=== PATIENT | female | born 1965 | race Caucasian/White ===

== ENCOUNTER → 2018-04-17 08:43 | Outpatient (CLI) | payer BC, SELFPAY ==
[2018-04-17 11:24] LABS: ALT 28 U/L (12-78); AST 22 U/L (15-37); Albumin 3.9 g/dL (3.4-5.0); Alkaline Phosphatase 103 U/L (46-116); Anion Gap 5.8 mmol/L (3-11); BUN 19 mg/dL (7-18); Bilirubin, Total 0.5 mg/dL (0.2-1.0); CO2 29.2 mmol/L (21.0-32.0); CREATININE 0.93 mg/dL (0.55-1.02); Calcium 8.7 mg/dL (8.5-10.1); Chloride 107 mmol/L (98-107); Cholesterol 193 mg/dL (50-200); Glucose 93 mg/dL (70-100); HCT 43.2 % (36.0-46.0); HDL Cholesterol 60 mg/dL (40-60); HGB 14.1 g/dL (12.0-15.5); LDL CHOLESTEROL 134 mg/dL (<100); Mean Corp. HGB Concentration 32.6 g/dL (32.0-36.0); Mean Corpuscular Hemoglobin 30.1 pg (27.0-33.0); Mean Corpuscular Volume 92.3 fL (80-95); Mean Platelet Volume 11.4 fL (8.0-11.0); Platelet Count 255 x1000/uL (130-400); Potassium 3.9 mmol/L (3.5-5.1); RBC 4.68 m/cumm (4.00-5.20); RBC Distribution Width 13.6 % (11.7-14.6); Sodium 142 mmol/L (136-145); Total Protein 7.1 g/dL (6.4-8.2); Triglyceride 54 mg/dL (30-150)
[2018-04-17 11:29] LABS: Iron 103 ug/dL (50-175)
== END ==
PROVIDERS: PCP Family Medicine; Visit Provider Family Medicine
DX: Z00.00 Encounter for general adult medical examination without abnormal findings (principal); E61.1 Iron deficiency
CPT/HCPCS: 36415; 80053; 80061; 83721; 85027; 83540

== ENCOUNTER 2018-04-29 00:34 | Outpatient (CLI) | payer BC, SELFPAY ==
--- NOTE | 2018-04-29 16:14 | DI.MAMMO_ITS ---
SYMPTOMS/DIAGNOSIS: SCREENING, Z12.31 BILATERAL SCREENING MAMMOGRAM: Mammograms were interpreted according to the usual protocol including computer analysis with CAD system, tomosynthesis and C view imaging. Comparison is made with exams from 2009 through 2017. The breasts are composed of scattered fibroglandular densities, breast density category B. No suspicious masses or suspicious microcalcifications are seen. There has been no significant change. IMPRESSION: Category 1B, negative mammogram. Yearly screening mammography is recommended. [facility] ASSESSMENT OF FINDINGS: Negative. Category 1. Patient will receive a letter notifying them of these results. BI-RADS category B. There are scattered areas of fibroglandular density.
== END 2018-04-29 00:54 ==
PROVIDERS: PCP Family Medicine; Visit Provider Family Medicine
DX: Z12.31 Encounter for screening mammogram for malignant neoplasm of breast (principal)
CPT/HCPCS: 77063; 77067

== ENCOUNTER 2019-01-05 08:13 | Emergency (ER) | payer BC, SELFPAY ==
--- NOTE | 2019-01-05 08:16 | W.ED.GENAD ---
Discharge Plan Disposition Patient Disposition: HOME Condition: Stable Discharge Details Chief Complaint: RashLesion Clinical Impression: Contact dermatitis Primary Care Provider: Luli Pickering ED Provider: Marva Mcdonald Home Meds and New Rx's Prescriptions: New prednisone 20 mg tablet See Rx Instructions .ROUTE .COMPLEX Qty: 24 RF: 0 Continued red yeast rice 600 MG tablet 2 cap PO DAILY RF: 0 losartan-hydrochlorothiazide 1 EACH tablet 1 tab-cap PO DAILY Qty: 90 RF: 12 Discharge Instructions Instructions: Poison Kaela (ED), Dermatitis (ED) Additional Instructions: Your rash appears consistent with a contact dermatitis which may be the result of poison kaela. Take the steroids until finished. Take Benadryl as needed and directed for itching. You can try mvxe-rww-[id number] nonsedating antihistamines such as Claritin, Zyrtec or Gerri to help with itching during the day. Follow-up with your primary care doctor this week for reevaluation. Return immediately to the emergency department with any worsening or new concerning symptoms. Discharge Data Discharge Physician: Marva Mcdonald Medical Decision Making 53-year-old female who presents with pruritic rash to face, extremities and chest x2 days. 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 Facial rash appears consistent with a contact dermatitis such as poison kaela. It is possible the scattered papules on her extremities and chest are due to self inoculation from itching her facial rash with fluid from the vesicles. There is no evidence of acute cellulitis. Patient appears nontoxic and afebrile. Will give a prescription for longer taper of steroids over 12 days. She is instructed to use Benadryl as needed and directed for itching. Patient instructed to follow-up with the primary care doctor for reevaluation and return here if worse. HPI General Mode of arrival: ambulatory. Date/Time Provider Initiated Documentation: 01/05/19 08:14. Limitations to Documentation: no limitations. Information obtained by: patient. HPI Narrative: Patient is a 53-year-old female who presents with itchy rash noted to her extremities, chest, and more pronounced on her face for the past 2 days. Patient states she first noticed it to her right hand 2 days ago, and yesterday spread to other parts of her body including her left upper extremity, left lower extremity, left breast, and now is worsening on her face. She states the rash is itchy. She has applied topical hydrocortisone to her face. 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 She states she was using new fabric covering chairs 2 days ago as well but denies any known allergy to this. She also admits to using a new soap 2 days ago. She denies fever, sore throat, cough, shortness of breath, nausea or vomiting. Related Data Home Medications Medication Instructions Recorded Confirmed red yeast rice 2 cap PO DAILY 06/24/13 01/05/19 losartan-hydrochlorothiazide 1 tab-cap PO DAILY #90 tab-cap 18 01/05/19 prednisone See Rx Instructions .ROUTE 01/05/19 .COMPLEX #24 tab Previous Rx's Medication Instructions Recorded losartan-hydrochlorothiazide 1 tab-cap PO DAILY #90 tab-cap 01/11/18 prednisone See Rx Instructions .ROUTE 01/05/19 .COMPLEX #24 tab Allergies Allergy/AdvReac Type Severity Reaction Status Date / Time No Known Allergies Allergy Unverified 01/05/19 08:21 Review of Systems Review of Systems All systems reviewed & are unremarkable except as noted in HPI and below Constitutional Reports as per HPI, Denies chills and Denies fever(s) Eyes Denies blurry vision ENT Denies dizziness, Denies sore throat and Denies throat swelling Cardiovascular Denies chest pain and Denies dyspnea Respiratory Denies cough and Denies dyspnea Gastrointestinal Denies abdominal pain, Denies diarrhea and Denies vomiting Genitourinary Denies hematuria and Denies dysuria Musculoskeletal Denies back pain and Denies numbness Integumentary/Breasts Denies lesions and Reports rash Neurologic Denies dizziness, Denies focal weakness and Denies numbness Allergic/Immunologic Denies throat swelling [facility] Medical History Depression Hypertension Iron deficiency anemia Migraine Surgical History Appendectomy (~02/1977) Ligation of fallopian tube (~06/1998) Family History Mother Essential hypertension Depression Heart disease Hyperlipidemia Bipolar disorder Colon cancer Cervical cancer Uterine cancer Father Essential hypertension Emphysema lung Alcohol abuse Brother Lazy eye Brother ADHD Maternal Uncle Essential hypertension Asthma Heart murmur Maternal Aunt Essential hypertension Heart murmur Maternal Aunt Essential hypertension Arthritis Maternal Grandfather Mental disorder Paternal Grandfather Alcohol abuse Colon cancer Maternal Grandmother Arthritis Cataract Alcohol abuse Paternal Grandmother No problems noted. Social History Smoking/Tobacco Use Status: Never Drug use: Never Exam Const General: cooperative, healthy appearing and no acute distress HENMT Head: normal to inspection Ears: hearing grossly normal bilaterally, external ears normal and TM's normal bilaterally General nose exam: external nose normal Face and sinus: normal facial exam Mouth: oral mucosae normal Throat: posterior oropharynx normal Eyes General: appearance normal, both eyes and all related structures Neck Neck: normal visual inspection Resp Effort & Inspection: normal respiratory effort and able to speak in complete sentences Auscultation: clear to auscultation bilaterally Cardio Rate: regular rate Rhythm: regular rhythm Skin Other: Scattered erythematous papules and vesicles noted to bilateral upper and lower extremities. 2 papules noted to right hand, 1 to left upper extremity, 1 to left lower extremity. Groupings of papules and clear fluid-filled vesicles noted to bilateral cheeks. Area noted to left cheek more extensive and extending from below infraorbital region down to chin, area to right cheek localized to the right mandible. Both areas have surrounding erythema but no fluctuance, induration or evidence of cellulitis. There are also scattered papules noted behind ears and left breast. Neuro General: alert, awake and oriented x3 Motor: muscle tone normal throughout Extrem General: normal to inspection and full ROM Psych Appearance: grossly normal Affect: normal affect
[2019-01-05 08:17] VITALS: BP 162/79; PULSE 64; RESP 16; TEMP 36.7; O2SAT 99
== END 2019-01-05 08:47 | disposition home or self-care (01) ==
LOC: ER 08:42
PROVIDERS: Emergency Provider Physician Assistant; PCP Family Medicine
DX: L25.9 Unspecified contact dermatitis, unspecified cause (principal); I10 Essential (primary) hypertension
CPT/HCPCS: 99283

== ENCOUNTER 2019-05-05 17:46 | Outpatient (REF) | payer BC, SELFPAY ==
--- NOTE | 2019-05-05 15:45 | PAPFT_PTH ---
PATIENT: Elizabeth Diaz LOC: [facility] U#:[id number] AGE/SX: 54/F ROOM: RE05/05/[address]: Luli Pickering MD, DC : 1965 BED: DIS: 05/05/2019 SPEC #: [id number] RECD: 05/05/19 18:47 STATUS: LORA REChristina #: [id number] JAVIER: 05/05/19 15:[address]: Luli Pickering DEPT: [facility] Cytology RECD BY: Pam Turk Tissues: 1 - CX/ENDOCX FOR PAP SMEARS Procedures: PAP THIN PREP/UVM Screening HPV DNA PROBE Comments: [id number]
== END 2019-05-05 18:06 ==
LOC: LBN 17:46
PROVIDERS: PCP Family Medicine; Visit Provider Family Medicine
DX: Z12.4 Encounter for screening for malignant neoplasm of cervix (principal); Z11.51 Encounter for screening for human papillomavirus (HPV)
CPT/HCPCS: 88142; 87624

== ENCOUNTER 2019-05-12 09:13 | Outpatient (CLI) | payer BC, SELFPAY ==
[2019-05-12 13:29] LABS: ALT 35 U/L (14-59); AST 26 U/L (15-37); Albumin 4.1 g/dL (3.4-5.0); Alkaline Phosphatase 110 U/L (46-116); Anion Gap 8.9 mmol/L (3-11); BUN 16 mg/dL (7-18); Bilirubin, Total 0.5 mg/dL (0.2-1.0); CO2 29.1 mmol/L (21.0-32.0); CREATININE 0.93 mg/dL (0.55-1.02); Calcium 9.4 mg/dL (8.5-10.1); Calculated LDL 104 mg/dL; Chloride 107 mmol/L (98-107); Cholesterol 176 mg/dL (50-200); Glucose 94 mg/dL (70-100); HDL Cholesterol 57 mg/dL (40-60); Potassium 4.4 mmol/L (3.5-5.1); Sodium 145 mmol/L (136-145); Triglyceride 75 mg/dL (30-150)
== END 2019-05-12 09:33 ==
PROVIDERS: PCP Family Medicine; Visit Provider Family Medicine
DX: Z00.00 Encounter for general adult medical examination without abnormal findings (principal)
CPT/HCPCS: 36415; 80053; 80061

== ENCOUNTER 2020-01-30 08:34 | Outpatient (CLI) | payer BC, SELFPAY ==
[2020-02-02 12:23] LABS: COVID-19 RT-PCR Result NEGATIVE (Negative)
== END 2020-01-30 08:54 ==
PROVIDERS: PCP Family Medicine; Visit Provider Family Medicine
DX: Z11.59 Encounter for screening for other viral diseases (principal)
CPT/HCPCS: U0003

== ENCOUNTER 2020-03-08 07:46 | Outpatient (CLI) | payer BC, SELFPAY ==
[2020-03-13 01:36] LABS: SARS-CoV-2 RNA Undetected (Undetected); SARS-CoV-2 Specimen Source Nasopharynx
== END 2020-03-08 08:06 ==
PROVIDERS: PCP Family Medicine; Visit Provider Family Medicine
DX: Z11.59 Encounter for screening for other viral diseases (principal)
CPT/HCPCS: U0003

== ENCOUNTER 2020-07-26 00:53 | Outpatient (CLI) | payer BC, SELFPAY ==
--- NOTE | 2020-07-26 06:37 | DI.MAMMO_ITS ---
EXAM: MG MAMMO SCREENING CLINICAL HISTORY: screening,Z12.39. TECHNIQUE: Bilateral full field digital CC and MLO mammographic images were obtained with 3D tomosyn thesis and utilizing computer aided detection (CAD). COMPARISON: Prior mammograms dating back to 2011, the most recent being April 2018. FINDINGS: There are no CAD designations. There are no new dominant masses nor malignant appearing microcalcification groups. There is no new architectural distortion nor skin thickening-retraction. IMPRESSION: No radiographic evidence of malignancy. BI-RADS Category 1 - Negative Breast Density - Category B - Scattered areas of fibroglandular density Breast density Category C or D implies that the patient has dense breast tissue. Dense breast tissue can make it harder to find cancer on a mammogram. Dense breast tissue is also associated with an incr eased risk of breast cancer. This information about the result of the mammogram report was provided to the patient to raise their awareness. Use this report when you speak with the patient about their risks for breast cancer, which includes their family history. At that time, you may recommend additional screening tests (Ultrasoun d or MRI) as these tests may add significant information. A negative radiographic report should not delay biopsy if a dominant or clinically suspicious mass is present. Up to ten percent of cancers are not identified on mammography. A negative report may reinforce clinical impression. Adenosis and dense breasts may obscure an underlying neoplasm. False positive reports average 6 to 10%. Patient will receive a letter notifying them of these results.
== END 2020-07-26 01:13 ==
PROVIDERS: PCP Family Medicine; Visit Provider Family Medicine
DX: Z12.31 Encounter for screening mammogram for malignant neoplasm of breast (principal)
CPT/HCPCS: 77063; 77067

== ENCOUNTER 2020-07-29 05:05 | Outpatient (CLI) | payer BC, SELFPAY ==
[2020-07-29 08:05] LABS: HGB 14.8 g/dL (11.2-15.7); MCH 29.7 pg (27.0-33.0); MCHC 32.2 % (32.0-36.0); MCV 92.4 fL (80-95); MPV 10.7 fL (8.0-11.0); Platelet Count 320 10^3/uL (130-400); RBC 4.98 10^6/uL (3.93-5.22); RDW 12.8 % (11.7-14.6); RDW-SD 43.8 fL; WBC 4.67 10^3/uL (4.4-10.8)
[2020-07-29 08:34] LABS: Hemoglobin A1C 5.4 % (<5.7)
[2020-07-29 08:56] LABS: ALT 36 U/L (14-59); AST 22 U/L (15-37); Albumin 4.3 g/dL (3.4-5.0); Alkaline Phosphatase 110 U/L (46-116); BUN 21 mg/dL (7-18); Bilirubin, Total 0.6 mg/dL (0.2-1.0); CREATININE 1.07 mg/dL (0.55-1.02); Calcium 9.2 mg/dL (8.5-10.1); Calculated LDL 163 mg/dL (<100); Chloride 103 mmol/L (98-107); Cholesterol 242 mg/dL (<200); Estimated GFR 53.05 (mL/min/1.73m2); Glucose 98 mg/dL (74-106); HDL Cholesterol 67 mg/dL (40-60); Potassium 4.2 mmol/L (3.5-5.1); Sodium 142 mmol/L (136-145); Total Protein 7.6 g/dL (6.4-8.2); Triglyceride 61 mg/dL (<150)
== END 2020-07-29 05:25 ==
PROVIDERS: PCP Family Medicine; Visit Provider Family Medicine
DX: Z00.00 Encounter for general adult medical examination without abnormal findings (principal); E11.9 Type 2 diabetes mellitus without complications; I10 Essential (primary) hypertension
CPT/HCPCS: 36415; 80053; 80061; 85027; 83036

== ENCOUNTER 2020-10-18 10:12 | Day surgery (SDC) | payer BC, SELFPAY ==
--- NOTE | 2020-10-18 06:44 | W.COLOREPORT ---
Date of service: 10/18/20 Time of Service: 11:40 Colonoscopy Report Date of procedure: 10/18/20 Pre-op diagnosis general: Hx of colon polyps Post-op diagnosis procedure note: same (polyps) Procedure: Colonoscopy with polypectomy Surgeon: Vika Novoa Anesthesia proc note operative: other (General/ASA 2/Eleazar West CRNA and Julito Skelton CRNA) Estimated blood loss (mL): 3 Pathology: other ([place] polyos x2, sigmoid colon) Complications: None Disposition: no change Indications: The patient is here for Colonoscopy pre-op. Her last screening was in 2014 and was remarkable for tubular adenomatous polyps. She reports a family history of colon cancer in her biological mother whom diet in her 60s. She has not had any bowel habit changes. -Discussed colonoscopy bowel prep as well as the procedure. Discussed possible complications of the procedure to include bleeding, pain, perforation, missed small lesion/polyp, sore throat, aspiration and adverse reaction to the medications. Questions were answered to patient?s satisfaction. No guarantees were implied or given. Prep: Miralax/Dulcolax Procedure Start Time: 10:52 Procedure End Time: 11:32 Retraction Time: 26 minutes Findings: 2 polyps approximately 0.5 cm 1 polyp <.5 cm Procedure Description: After informed consent was obtained the patient was taken to the procedure room and placed in a left decubitous position. Monitors were applied and a time out was done. The patients name, date of , procedure, allergies to medications and metal in their body was reviewed. The patient was then sedated. Once sedated and comfortable a rectal exam was done. External exam was normal. Internal exam revealed a normal sphincter tone and no palpable masses. The scope was then introduced and retro-flexed. No internal hemorrhoids, polyps or masses were identified on retro-flexion. The scope was then advanced to the cecum without difficulty. The ileocecal vlave and appendiceal orifice were identified. The prep was good. The scope was then slowly retracted over 26 minutes back into the rectum. Polyps were removed with a hot snare in the ascending colon and with forceps in the ascending colon and sigmoid colon. There was no diverticulosis noted. The scope was removed and the patient was woken up and taken back to Same day surgery in stable condition. The patient tolerated the procedure well and there were no immediate complications. Follow up: The patient should follow up in 5 years unless they develop changes in bowel habits or other new gastrointestinal complaints.
--- NOTE | 2020-10-18 06:45 | W.PM.DSUDISC ---
Discharge Plan Disposition Patient Disposition: HOME Condition: Good Discharge Details Reason For Visit: colonoscopy Attending Provider: Vika Novoa Primary Care Provider: Luli Pickering Home Meds and New Rx's Prescriptions: Continued red yeast rice 600 MG tablet 2 cap PO DAILY RF: 0 amlodipine 10 mg tablet 10 mg PO DAILY Qty: 90 RF: 4 Discharge Instructions Instructions: Colorectal Polyps (DC) Additional Instructions: Findings: 3 polyps Follow up: 5 years Please call if you develop: fevers >101.5 Nausea or Vomiting Abdominal pain that is not transient DAY SURGERY UNIT POST ENDOSCOPY INSTRUCTIONS 1. Because there will be medication in your system for the next 24 hours, you may feel a little sleepy. Your coordination will be affected. Therefore: a. Do not drive or operate dangerous equipment for 24 hours. b. Do not drink alcohol beverages for 24 hours (not even beer). c. Plan to go home and rest for the day. 2. Generally there are no restrictions on your activity after a day or so has gone by, but you may feel a bit fatigued for a few days. 3 After you arrive home you may have a light meal and return to a normal diet as you can tolerate it without feeling sick to your stomach. 4. After surgery, you may feel pain or discomfort. This should be only transient, but if it persists please contact your doctor. 5. If there are any questions regarding the findings of your procedure, please feel free to contact your doctor. 6. If you are unable to contact your doctor with a problem, contact the hospital at [phone]. 7. Continue all your regular medications unless directed otherwise. I understand the above instructions and have no questions. Signature of Patient or Responsible Adult Escort Date/Time Name of Responsible Adult Escort Signature of Nurse Date/Time Activity:: Activity as Tolerated Diet:: As Tolerated Discharge Orders Discharge Orders: Discharge Order (Routine); Ordered 10/18/20 Ordered By: Vika Novoa
[2020-10-18 10:16] VITALS: BP 137/81; PULSE 70; RESP 18; TEMP 37; O2SAT 99
[2020-10-18] MEDS: Lactated Ringers 1,000 ML 80 ML IV (10:39)
--- NOTE | 2020-10-18 11:10 | BOWEL_PTH ---
PATIENT: Elizabeth Diaz LOC: [facility] U#:[id number] AGE/SX: 55/F ROOM: RE10/18/[address]: Vika Novoa MD : 1965 BED: DIS: 10/18/2020 SPEC #: [id number] RECD: 10/18/20 12:37 STATUS: LORA REChristina #: [id number] JAVIER: 10/18/20 11:[address]: Vika Novoa DEPT: Surgical Specimen RECD BY: Pam Turk ENTERED: 10/18/20 12:38 SP TYPE: Bowel OTHR DR: Luli Pickering MD, DC Tissues: 1 - BIOPSY BOWEL 2 - BIOPSY BOWEL Procedures: GROSS AND MICRO LEVEL 4 Comments: [id number]
[2020-10-18 12:15] VITALS: BP 119/75; PULSE 59; RESP 18; TEMP 36.8; O2SAT 100
== END 2020-10-18 12:50 | disposition home or self-care (01) ==
LOC: SUR 10:13
PROVIDERS: PCP Family Medicine; Visit Provider Surgery
PROC: 0DJD8ZZ Inspection of Lower Intestinal Tract, Via Natural or Artificial Opening Endoscopic (ICD-10-PCS; CPT 45378; principal; 2020-10-18 11:30)
DX: Z12.11 Encounter for screening for malignant neoplasm of colon (principal); D12.2 Benign neoplasm of ascending colon; Z80.0 Family history of malignant neoplasm of digestive organs; Z86.010 Personal history of colon polyps; I10 Essential (primary) hypertension; D50.9 Iron deficiency anemia, unspecified
CPT/HCPCS: 45385; 45380; 88305

== ENCOUNTER 2022-03-23 09:20 | Emergency (ER) | payer BC, SELFPAY ==
[2022-03-23 09:24] VITALS: BP 152/91; PULSE 71; RESP 18; TEMP 37.5; O2SAT 100
--- NOTE | 2022-03-23 09:29 | ED.GENADUL_ITS ---
Discharge Plan Disposition Patient Disposition: HOME Condition: Stable Discharge Details Clinical Impression: Contact dermatitis due to poison kaela Primary Care Provider: Luli Pickering ED Provider: Kash Colorado Home Meds and New Rx's Prescriptions: New prednisone 10 mg tablet 10 mg PO DAILY Qty: 48 0RF Rx Instructions: TAPER 60 mg day 1-3 50 mg day 4-5 40 mg day 6-7 30 mg day 8-9 20 mg day 10-11 10 mg day 12-13 Continued red yeast rice 600 MG tablet 2 cap PO DAILY amlodipine 10 mg tablet 10 mg PO DAILY Qty: 90 4RF diphenhydramine HCl [Benadryl] 25 mg Capsule 50 mg PO TID Discontinued prednisone 5 mg tablets,dose pack 1 dose pk PO DAILY Label Comments: TAKE DIRECTED ON PACKAGE INSERT Rx Instructions: see directions Discharge Instructions Instructions: Poison Kaela (ED) Additional Instructions: I am starting you on a longer and higher dose prednisone taper, please take as directed. You may continue ddev-gmn-snbdakl Benadryl as directed as well as the topical creams and lotions. Please watch for new or worsening symptoms and return to the ER for any concerns. I do recommend contacting your primary care provider to discuss your symptoms and need for outpatient reevaluation, if symptoms are to worsen or progress then referral to dermatology may be required. Medical Decision Making 57-year-old female presents with worsening poison kaela after exposure 2 weeks ago. She was placed on a short-term low-dose prednisone taper, is only on the fourth day and did miss a dose. She is using Benadryl 3 times a day as well as lgpm-ihq-omzjima creams. Now presenting with rash to her chest beginning on her face. There is no airway involvement. She appears well, nontoxic, airway is patent, no evidence of secondary infection. We discussed the importance of taking the medication as directed, I do believe that she will benefit from a more aggressive and longer steroid taper, 60 mg given here in the ER. We also discussed that she may take Benadryl 4 times a day and we discussed utilizing ixvq-uyy-tlobqtd medications for symptomatic control. Standard discharge and return precautions were provided. Patient understands, is agreeable to this plan, and has no additional questions or concerns upon discharge. This documentation was generated using [employer] system, please disregard any oddities of phrase or misspellings. Medical Records Medical records reviewed: Yes I reviewed the patient's medical records. HPI General Mode of arrival: ambulatory . Date/Time Provider Initiated Documentation: 03/23/22 09:21 . Limitations to Documentation: no limitations . Information obtained by: patient . HPI Narrative: This is a 57-year-old female with a past medical history of hypertension, depression, migraines, presenting to the ER for evaluation of poison kaela. She states that her initial exposure was 2 weeks ago, symptoms began approximately 2 days after the exposure. The rash is primarily on her upper and lower extremities, she was seen in another ER and started on oral Benadryl and a prednisone taper, she states that she took 4 doses of the steroids, is now on 10 mg, and did not miss a dose. She states that the rash continues to be itchy but not painful. It is now spreading to her chest and face. She denies any difficulty speaking or breathing, no oral involvement. Related Data Home Medications Medication Instructions Recorded Confirmed red yeast rice 600 mg tablet 2 cap PO DAILY 06/24/13 03/23/22 amlodipine 10 mg tablet 10 mg PO DAILY #90 tabs 06/27/21 03/23/22 diphenhydramine HCl 25 mg capsule 50 mg PO TID 03/23/22 03/23/22 (Benadryl) prednisone 10 mg tablet 10 mg PO DAILY #48 tabs 03/23/22 Previous Rx's Medication Instructions Recorded amlodipine 10 mg tablet 10 mg PO DAILY #90 tabs 06/27/21 prednisone 10 mg tablet 10 mg PO DAILY #48 tabs 03/23/22 Allergies Allergy/AdvReac Type Severity Reaction Status Date / Time No Known Allergies Allergy Verified 03/23/22 09:30 General Stated Complaint: RashLesion SUKH: 3 Review of Systems Constitutional Constitutional: Denies fever(s) ENT Ears, Nose, Mouth, and Throat: Denies mouth pain Cardiovascular Cardiovascular: Denies chest pain and Denies dyspnea Respiratory Respiratory: Denies dyspnea Gastrointestinal Gastrointestinal: Denies nausea and Denies vomiting Integumentary/Breasts Skin/Breast: Reports rash PFSH All Active Problems Contact dermatitis due to poison kaela (Acute) Skin tags, multiple acquired (Acute) Tubular adenoma (Acute ~10/2020) Annual physical exam (Acute) Acute Lyme disease (Acute 05/04/16) Depressive disorder (Acute) Diverticulosis (Acute) 10/19/14-MILD Essential hypertension (Acute 06/24/13) Iron deficiency (Acute 08/04/14) Migraine (Acute) Tubular adenoma of colon (Acute) 10/2014; DR. DE LA GARZA-X 1 Medical History Depression Hypertension Iron deficiency anemia Migraine Surgical History Appendectomy (~02/1977) Ligation of fallopian tube (~06/1998) Family History Mother , 60's Essential hypertension Depression Heart disease Hyperlipidemia Bipolar disorder Colon cancer Cervical cancer Uterine cancer Father , AGE 65 Essential hypertension Emphysema lung Alcohol abuse Brother Lazy eye Brother ADHD Maternal Uncle Essential hypertension Asthma Heart murmur Maternal Aunt Essential hypertension Heart murmur Maternal Aunt Essential hypertension Arthritis Maternal Grandfather Mental disorder Paternal Grandfather Alcohol abuse Colon cancer Maternal Grandmother Arthritis Cataract Alcohol abuse Paternal Grandmother No problems noted. Social History Smoking/Tobacco Use Status: Never Second Hand Exposure: Yes Smoking risk assessment performed?: Yes Alcohol Intake: never Drug use: Never Substance use type: does not use Caregiver/Support person: No Household members: spouse and other Details: dorm students @ [employer] Communication Needs: None Do you need help understanding health information?: Never Pets and animals: No Sexually active: Yes Do you think of yourself as: straight/heterosexual Current gender identity: female What is your relationship status?: How often do you talk on the phone with friends or family?: three or more times per week How often do you get together with friends or relatives?: three or more times per week How often do you attend christianity or druze services?: 4 or more times per year Do you belong to any clubs or organized social groups?: no Panel score (0-1 are the most socially isolated patients): 3 What type of physical activity do you participate in: weight lifting Duration: 60-90 minutes/day Frequency: 3-4 times per week Farhana/Judaism: Christianity Special farhana needs: No Seatbelt use: always Helmet use: Yes Drive intox or ride w/intox fork truck driver: No Do you feel safe at home: Yes Do you feel safe in your relationship?: Yes Exam Const General: cooperative, healthy appearing, comfortable and no acute distress Orientation: alert and awake [facility] Head: normal to inspection, normocephalic and atraumatic General nose exam: nasal mucous membranes and turbinates normal Mouth: oral mucosae normal and moist mucous membranes Throat: posterior oropharynx normal Eyes General: appearance normal, both eyes and all related structures Conjunctivae: conjunctivae normal Neck Neck: normal visual inspection, full ROM, trachea midline and supple Resp Effort & Inspection: normal respiratory effort and able to speak in complete sentences Skin Other: There is a scattered rash, consistent with a contact dermatitis scattered, and areas partly excoriated, the highest concentration is that of the upper chest bilateral upper and lower extremities. There is some on the posterior neck, abdomen, and 2 patches on the face. In areas there are intact papules. No evidence of secondary infection Neuro General: patient alert, patient awake, moves all extremities and no focal motor deficits Cognition: normal cognition Speech: speech normal Gait: normal gait Sensory Exam: no sensory deficits noted Extrem General: no pedal edema Psych Appearance: grossly normal Mental Status: mental status grossly normal Course Vital Signs Vital signs: Vital Signs Temperature 37.5 C 03/23/22 09:24 Pulse 71 03/23/22 09:24 Respiratory Rate 18 03/23/22 09:24 Blood Pressure 152/91 H 03/23/22 09:24 Pulse Oximetry 100 03/23/22 09:24 Temperature 37.5 C 03/23/22 09:24 Temperature Source Temporal Artery Scan 03/23/22 09:24 Pulse 71 03/23/22 09:24 Respiratory Rate 18 03/23/22 09:24 Blood Pressure 152/91 H 03/23/22 09:24 Blood Pressure Position Supine 03/23/22 09:24 Pulse Oximetry 100 03/23/22 09:24 Oxygen Delivery Method Room Air 03/23/22 09:24 Oxygen Flow Rate 0 03/23/22 09:24
[2022-03-23] MEDS: predniSONE 20 MG TAB 60 MG PO (09:52)
== END 2022-03-23 10:12 | disposition home or self-care (01) ==
PROVIDERS: Emergency Provider Physician Assistant; PCP Family Medicine
DX: L25.5 Unspecified contact dermatitis due to plants, except food (principal); I10 Essential (primary) hypertension; Z77.22 Contact with and (suspected) exposure to environmental tobacco smoke (acute) (chronic)
CPT/HCPCS: 99283; 99284; J7512

== ENCOUNTER 2022-12-05 09:06 | Outpatient (REF) | payer BC, SELFPAY ==
--- NOTE | 2022-12-05 08:30 | PAPFT_PTH ---
PATIENT: Elizabeth Diaz LOC: [facility] U#:[id number] AGE/SX: 57/F ROOM: RE12/05/[address]: Luli Pickering MD, DC : 1965 BED: DIS: 12/05/2022 SPEC #: [id number] RECD: 12/05/22 13:01 STATUS: LORA REQ #: [id number] JAVIER: 12/05/22 08:[address]: Luli Pickering DEPT: [facility] Cytology RECD BY: Pam Turk Tissues: 1 - CX/ENDOCX FOR PAP SMEARS Procedures: PAP THIN PREP/UVM Screening Comments: [id number] (UNSATISFACTORY FOR EVALUATION)
== END 2022-12-05 09:07 | disposition home or self-care (01) ==
LOC: LBN 09:06
PROVIDERS: PCP Family Medicine; Visit Provider Family Medicine
DX: Z12.4 Encounter for screening for malignant neoplasm of cervix (principal)
CPT/HCPCS: 88142

== ENCOUNTER 2023-01-04 01:43 | Outpatient (CLI) | payer BC, SELFPAY ==
--- NOTE | 2023-01-04 08:30 | DI.MAMMO_ITS ---
Exam(s) MAMMO SCREENING EXAM: MAMMO SCREENING CLINICAL HISTORY: screening,z12.39 TECHNIQUE: Bilateral full field digital CC and MLO mammographic images were obtained with 3D tomosyn thesis and utilizing computer aided detection (CAD). COMPARISON: Available for comparison. FINDINGS: Masses/Architectural Distortion: There are stable well-circumscribed nodule seen in both breasts. No suspicious nodules or areas of architectural distortion are seen. Microcalcifications: No suspicious pleomorphic-type are seen. Skin Thickening/Nipple Retraction: None. IMPRESSION: 1. No significant interval change with no specific features of malignancy noted. 2. Unless there is more urgent need, screening mammography is recommended, as per [employer] guidelines. BI-RADS Category 2 - Benign Findings Breast Density - Category B - Scattered areas of fibroglandular density Breast density category C or D implies that the patient has dense breast tissue. Dense breast tissue is very common and is not abnormal but dense breast tissue can make it harder to find cancer on a ma mmogram. Also, dense breast tissue may increase their breast cancer risk. This information about the result of the mammogram report was provided to the patient to raise their awareness. Use this report when you speak with the patient about their risks for breast cancer, which includes their family hist ory. At that time, you may recommend for more screening tests (Ultrasound or MRI) as they might be us eful based on their risk. A negative radiographic report should not delay biopsy if a dominant or clinically suspicious mass is present. Up to ten percent of cancers are not identified on mammography. A negative report may reinforce clinical impression. Adenosis and dense breasts may obscure an underlying neoplasm. False positive reports average 6 to 10%. Patient will receive a letter notifying them of these results.
== END 2023-01-04 02:03 ==
LOC: DI 01:44
PROVIDERS: PCP Family Medicine; Visit Provider Family Medicine
DX: Z12.31 Encounter for screening mammogram for malignant neoplasm of breast (principal)
CPT/HCPCS: 77063; 77067

== ENCOUNTER 2023-02-01 01:12 | Outpatient (CLI) | payer BC, SELFPAY ==
[2023-02-01 12:50] LABS: HCT 43.8 % (36.0-46.0); HGB 14.1 g/dL (11.2-15.7); MCH 29.7 pg (27.0-33.0); MCHC 32.2 % (32.0-36.0); MCV 92 fL (80-95); MPV 11.3 fL (8.0-11.0); Platelet Count 287 10^3/uL (130-400); RBC 4.75 10^6/uL (3.93-5.22); RDW 13.4 % (11.7-14.6); RDW-SD 45.9 fL; WBC 4.56 10^3/uL (4.4-10.8)
[2023-02-01 13:11] LABS: ALT 34 U/L (14-59); AST 24 U/L (15-37); Albumin 3.8 g/dL (3.4-5.0); Alkaline Phosphatase 100 U/L (46-116); Anion Gap 7.1 mmol/L (3-11); BUN 15 mg/dL (7-18); Bilirubin, Total 0.5 mg/dL (0.2-1.0); CO2 29.9 mmol/L (21.0-32.0); CREATININE 0.9 mg/dL (0.55-1.02); Calcium 8.9 mg/dL (8.5-10.1); Calculated LDL 130 mg/dL (<100); Chloride 105 mmol/L (98-107); Cholesterol 206 mg/dL (<200); Glucose 89 mg/dL (74-106); HDL Cholesterol 60 mg/dL (40-60); Potassium 3.8 mmol/L (3.5-5.1); Sodium 142 mmol/L (136-145); TSH (W/Ref FT4) 2.31 uIU/mL (0.36-3.74); Total Protein 7.2 g/dL (6.4-8.2); Triglyceride 81 mg/dL (<150)
== END 2023-02-01 01:13 | disposition home or self-care (01) ==
LOC: LOS 01:13
PROVIDERS: PCP Family Medicine; Visit Provider Family Medicine
DX: Z00.00 Encounter for general adult medical examination without abnormal findings (principal)
CPT/HCPCS: 36415; 80053; 80061; 85027; 84443

== ENCOUNTER 2024-02-05 05:05 | Outpatient (CLI) | payer BC, SELFPAY ==
[2024-02-05 12:19] LABS: ALT 27 U/L (14-59); AST 19 U/L (15-37); Albumin 4.1 g/dL (3.4-5.0); Alkaline Phosphatase 103 U/L (46-116); Anion Gap 6.8 mmol/L (3-11); BUN 19 mg/dL (7-18); Bilirubin, Total 0.4 mg/dL (0.2-1.0); CO2 31.2 mmol/L (21.0-32.0); Calcium 9.2 mg/dL (8.5-10.1); Calculated LDL 140 mg/dL (<100); Chloride 106 mmol/L (98-107); Cholesterol 217 mg/dL (<200); Glucose 111 mg/dL (74-106); HDL Cholesterol 69 mg/dL (40-60); Sodium 144 mmol/L (136-145); Total Protein 7.4 g/dL (6.4-8.2); Triglyceride 40 mg/dL (<150)
== END 2024-02-05 05:06 | disposition home or self-care (01) ==
LOC: LOS 05:07
PROVIDERS: PCP Family Medicine; Visit Provider Family Medicine
DX: I10 Essential (primary) hypertension (principal); Z00.00 Encounter for general adult medical examination without abnormal findings
CPT/HCPCS: 36415; 80053; 80061

== ENCOUNTER 2024-07-29 08:05 | Outpatient (CLI) | payer BC, SELFPAY ==
[2024-07-29 12:33] LABS: Calculated LDL 165 mg/dL (<100); Cholesterol 250 mg/dL (<200); HDL Cholesterol 70 mg/dL (40-60); Triglyceride 79 mg/dL (<150)
== END 2024-07-29 08:06 | disposition home or self-care (01) ==
LOC: LOS 08:06
PROVIDERS: PCP Family Medicine; Referring Provider Family Medicine; Visit Provider Family Medicine
DX: I10 Essential (primary) hypertension (principal); Z78.0 Asymptomatic menopausal state; E78.00 Pure hypercholesterolemia, unspecified; Z00.00 Encounter for general adult medical examination without abnormal findings
CPT/HCPCS: 36415; 80061

== ENCOUNTER 2024-08-04 01:15 | Outpatient (CLI) | payer BC, SELFPAY ==
--- NOTE | 2024-08-04 07:15 | DI.DEXA_ITS ---
Exam(s) XR DEXA BONE DENSITY W/WO JV EXAM: XR DEXA BONE DENSITY W/WO JV CLINICAL HISTORY: screening for osteoporosis in postmenopausal state,Z78.0 TECHNIQUE: COMPARISON: No exams were available for comparison FINDINGS: Lateral Spine Image: Unremarkable. No compression deformities identified. Left hip: Total T-Score: 0.1 Total Z-Score: 1.0 T- and Z-scores: Within normal limits. Lumbar Spine: Total T-Score: 0.2 Total Z-Score: 1.6 T- and Z-scores: Within normal limits. IMPRESSION: No evidence of osteoporosis.
== END 2024-08-04 01:35 ==
LOC: DI 01:15
PROVIDERS: PCP Family Medicine; Visit Provider Family Medicine
DX: Z78.0 Asymptomatic menopausal state (principal); Z13.820 Encounter for screening for osteoporosis
CPT/HCPCS: 77080

== ENCOUNTER 2025-05-05 03:29 | Outpatient (CLI) | payer OTHER, SELFPAY ==
--- NOTE | 2025-05-05 06:30 | DI.MAMMO_ITS ---
Exam(s) MAMMO SCREENING EXAM: MAMMO SCREENING CLINICAL HISTORY: screening,z12.39. TECHNIQUE: Bilateral full field digital CC and MLO mammographic images were obtained with 3D tomosynthesis and utilizing computer aided detection (CAD). COMPARISON: Prior mammograms were reviewed. FINDINGS: There are no CAD designations There are no new spiculated masses nor malignant appearing microcalcification groups. There is no significant architectural distortion nor skin thickening-retraction. IMPRESSION: No radiographic evidence of malignancy. BI-RADS Category 1 - Negative Breast Density - Category B - There are scattered areas of fibroglandular density. Breast density Category C or D implies that the patient has dense breast tissue. Dense breast tissue can make it harder to find cancer on a mammogram. Dense breast tissue is also associated with an increased risk of breast cancer. This information about the result of the mammogram report was provided to the patient to raise their awareness. Use this report when you speak with the patient about their risks for breast cancer, which includes their family history. At that time, you may recommend additional screening tests (Ultrasound or MRI) as these tests may add significant information. A negative radiographic report should not delay biopsy if a dominant or clinically suspicious mass is present. Up to ten percent of cancers are not identified on mammography. A negative report may reinforce clinical impression. Adenosis and dense breasts may obscure an underlying neoplasm. False positive reports average 6 to 10%. Patient will receive a letter notifying them of these results.
== END 2025-05-05 03:49 ==
LOC: DI 03:29
PROVIDERS: PCP Family Medicine; Visit Provider Family Medicine
DX: Z12.31 Encounter for screening mammogram for malignant neoplasm of breast (principal)
CPT/HCPCS: 77063; 77067

== ENCOUNTER 2025-06-01 03:27 | Outpatient (CLI) | payer OTHER, SELFPAY ==
[2025-06-01 13:31] LABS: ALT 24 U/L (14-59); AST 27 U/L (15-37); Albumin 3.9 g/dL (3.4-5.0); Alkaline Phosphatase 112 U/L (46-116); Anion Gap 8.4 mmol/L (3-11); BUN 13 mg/dL (7-18); Bilirubin, Total 0.5 mg/dL (0.2-1.0); CO2 29.6 mmol/L (21.0-32.0); Calcium 8.8 mg/dL (8.5-10.1); Calculated LDL 124 mg/dL (<100); Chloride 105 mmol/L (98-107); Cholesterol 192 mg/dL (<200); Estimated GFR 83.78 (mL/min/1.73m2); Glucose 87 mg/dL (74-106); HDL Cholesterol 57 mg/dL (>or=50); Potassium 3.7 mmol/L (3.5-5.1); Sodium 143 mmol/L (136-145); Total Protein 7.3 g/dL (6.4-8.2); Triglyceride 59 mg/dL (<150); Vitamin D 25 Total 44 ng/mL (30-100)
== END 2025-06-01 03:28 | disposition home or self-care (01) ==
LOC: LBO 03:27
PROVIDERS: PCP Family Medicine; Visit Provider Family Medicine
DX: Z13.21 Encounter for screening for nutritional disorder (principal); I10 Essential (primary) hypertension; Z00.00 Encounter for general adult medical examination without abnormal findings
CPT/HCPCS: 36415; 80053; 80061; 82306